=== PATIENT | male | born 1980 | race African-American/Black ===

== ENCOUNTER 2022-04-24 15:24 | Emergency (ER) | payer SELFPAY ==
[~2022-04-24] VITALS: Ht 170.2 cm; Wt 73.5 kg
[2022-04-24] MEDS ORDERED: ACETAMINOPHEN ES 500 MG TABLET PO ONE (17:00)
[2022-04-24] MEDS ORDERED: METOCLOPRAMIDE HCL 10 MG TABLET PO ONE (17:00)
[2022-04-24] MEDS ORDERED: METOCLOPRAMIDE HCL 10 MG TABLET ONE (17:12)
[2022-04-24] MEDS ORDERED: ACETAMINOPHEN ES 500 MG TABLET ONE (17:12)
--- NOTE | 2022-04-24 17:17 | NUR ---
REGLAN AND TYLENOL PO GIVEN INDICATED, MARIE WELL
--- NOTE | 2022-04-24 17:38 | NUR ---
PT TAKEN TO RADIOLOGY FOR CT
--- NOTE | 2022-04-24 18:00 | NUR ---
PT RETURNED FROM RADIOLOGY
--- NOTE | 2022-04-24 18:29 | NUR ---
Patient discharged to home in stable condition. Written and verbal after care instructions given. Patient verbalizes understanding of instruction.
[2022-04-24 18:41] VITALS: BP 122/73
== END 2022-04-24 18:45 | disposition home or self-care (01) ==
LOC: ER 15:34
DX: R51.9 Headache, unspecified (principal); Z90.89 Acquired absence of other organs; Z88.8 Allergy status to other drugs, medicaments and biological substances
CPT/HCPCS: 99284; 70450; J8597